=== PATIENT | male | born 1995 | race Caucasian/White ===

== ENCOUNTER 2023-07-18 18:20 | Emergency (ER) | payer OTHER ==
[~2023-07-18] VITALS: Ht 177.8 cm; Wt 79.4 kg
[2023-07-18] MEDS ORDERED: TETRACAINE HCL 0.5% OPHT DROP 2 ML BOTTLE OP ONE (19:15)
[2023-07-18] MEDS ORDERED: FLUORESCEIN SODIUM 1 MG STRIP ONE (19:15)
[2023-07-18] MEDS ORDERED: FLUORESCEIN SODIUM 1 MG STRIP OP ONE (19:15)
[2023-07-18] MEDS ORDERED: TETRACAINE HCL 0.5% OPHT DROP 2 ML BOTTLE ONE (19:15)
[2023-07-18 22:06] VITALS: BP 147/98; O2SAT 98
== END 2023-07-18 22:06 | disposition home or self-care (01) ==
LOC: ER 18:20
DX: S05.8X1A Other injuries of right eye and orbit, initial encounter (principal); Z60.2 Problems related to living alone; W25.XXXA Contact with sharp glass, initial encounter; Y93.89 Activity, other specified; Y92.89 Other specified places as the place of occurrence of the external cause; Y99.8 Other external cause status
CPT/HCPCS: 70480; A4606; A4663